=== PATIENT | male | born 1960 | race American Indian/Alaskan Native ===

== ENCOUNTER 2024-02-15 08:03 | Day surgery (SDC) | payer MEDICAID, OTHER ==
[~2024-02-15 08:03] MED LIST: Sodium Chloride 0.9% 10 ML Syringe FLUSH PRN; Sodium Chloride 0.9% 2.5 ML Syringe FLUSH PRN; Sodium Chloride 0.9% 20 ML SDV IV PRN
[2024-02-15] MEDS ORDERED: propofoL 500 MG/50 ML 50 ML ONE (08:20)
[2024-02-15] MEDS ORDERED: Lidocaine 2% 5 ML SDV ONE (08:20)
[2024-02-15] MEDS: Lactated Ringers 1,000 ML IV SCH (08:33)
[2024-02-15] MEDS ORDERED: HYDROmorphone 1 MG/ML Syringe ONE (09:56)
[2024-02-15] MEDS ORDERED: Propofol 200 MG/20 ML SDV ONE (10:08)
== END 2024-02-15 11:20 | disposition home or self-care (01) ==
LOC: MW.SDS 08:03
PROVIDERS: ATTEND Surgery
DX: Z12.11 Encounter for screening for malignant neoplasm of colon (principal); D12.5 Benign neoplasm of sigmoid colon; I10 Essential (primary) hypertension; E11.9 Type 2 diabetes mellitus without complications; E78.5 Hyperlipidemia, unspecified; Z79.899 Other long term (current) drug therapy
CPT/HCPCS: 45380; 45385; J1171; J2704; J7120; 00811; J3490